=== PATIENT | male | born 1995 | race Caucasian/White ===

== ENCOUNTER 2020-05-05 04:24 | Emergency (ER) | payer SELFPAY ==
[~2020-05-05] VITALS: Ht 175.3 cm; Wt 145.0 kg
[2020-05-05] MEDS ORDERED: SODIUM CHLORIDE 0.9% 1,000 ML IV ONE ×2 (05:02→16:40)
[2020-05-05] MEDS ORDERED: ONDANSETRON HCL 4MG/2ML INJ IV PRN (05:15)
[2020-05-05 05:32] LABS: BASOPHILS % 0.8 % (0.0-2.0); HEMATOCRIT. 42.5 % (42.0-52.0); HEMOGLOBIN. 14.4 g/dL (14.0-18.0); LYMPHOCYTES % 22.1 % (20.0-50.0); MEAN CORPUSCULAR HEMOGLOBIN 29.6 pg (28.0-32.0); MEAN CORPUSCULAR VOLUME 87.3 fL (80.0-94.0); MEAN PLATELET VOLUME 8.6 fl (7.4-10.4); NEUTROPHILS % 67.1 % (40.0-76.0); PLATELET 356 x1000/uL (130-400); RED BLOOD CELL COUNT 4.87 mill/uL (4.7-6.1); RED CELL DISTRIBUTION WIDTH 13.6 % (11.6-14.6)
[2020-05-05 05:39] LABS: CHLORIDE 104 mEq/L (98-107)
[2020-05-05 05:43] LABS: ETHANOL BLOOD < 10 mg/dL
[2020-05-05] MEDS ORDERED: OLANZAPINE 10 MG/VIAL IM ONE ×2 (06:00→08:45)
[2020-05-05 07:11] LABS: *AMPHETAMINES SCREEN URINE NEGATIVE (NEGATIVE); *BARBITURATES SCREEN URINE NEGATIVE (NEGATIVE); *BENZODIAZEPINES SCREEN URINE NEGATIVE (NEGATIVE); *COCAINE SCREEN URINE NEGATIVE (NEGATIVE)
[2020-05-05 07:12] LABS: CANNABINOID URINE SCREEN PRESUMTIVE POSITIVE (NEGATIVE); METHADONE URINE SCREEN NEGATIVE (NEGATIVE); OPIATES URINE SCREEN NEGATIVE (NEGATIVE); PHENCYCLIDINE URINE SCREEN NEGATIVE (NEGATIVE)
[2020-05-05] MEDS ORDERED: LORAZEPAM 2MG/ML CPJ IM STA ×2 (08:21→10:18)
[2020-05-05] MEDS ORDERED: DIPHENHYDRAMINE 50MG/ML VIAL IM STA (08:35)
[2020-05-05 17:35] VITALS: BP 130/75
== END 2020-05-05 17:34 | disposition left against medical advice (07) ==
LOC: ER 04:24 → EDBEDREQ 17:07 → EDBEDREQTM 17:07 → ER 17:34 → CANBEDREQ 17:36
DX: R41.82 Altered mental status, unspecified (principal); R45.1 Restlessness and agitation
CPT/HCPCS: 36415; 70450; 80053; 80305; 80320; 85025; 93005; 96372; 99285; J1200; J2060; J3490; J7030; G0480